=== PATIENT | male | born 1965 ===

== ENCOUNTER 2016-11-20 12:08 | Emergency (ER) | payer SELFPAY ==
[2016-11-20] MEDS ORDERED: IBUPROFEN800 M1 PO (12:18)
[2016-11-20] MEDS ORDERED: CELEXA20 M2 PO (12:20)
[2016-11-20] MEDS ORDERED: NEURONTIN400 M1 PO (12:20)
[2016-11-20] MEDS ORDERED: KEFLEX500 M4 PO (14:56)
[2016-11-20] MEDS ORDERED: BACTRIM DS TAB1 EAC2 PO (14:56)
== END 2016-11-20 15:25 ==
LOC: EDMED 12:08
DX: S81.802A Unspecified open wound, left lower leg, initial encounter (principal); F32.9 Major depressive disorder, single episode, unspecified; Z79.899 Other long term (current) drug therapy; X58.XXXA Exposure to other specified factors, initial encounter
CPT/HCPCS: J0696